=== PATIENT | male | born 1955 | race Caucasian/White ===

== ENCOUNTER 2020-10-31 13:44 | Emergency (ER) | payer SELFPAY ==
[~2020-10-31] VITALS: Ht 193 cm; Wt 122.7 kg
[2020-10-31 13:57] VITALS: Ht 193 cm; Wt 122.7 kg
[2020-10-31] MEDS ORDERED: GLUCOPHAGE1000 MG PO (14:01)
[2020-10-31] MEDS ORDERED: FISH OIL 1,0001 CA1 PO (14:01)
[2020-10-31] MEDS ORDERED: LIPITOR40 MG PO (14:01)
[2020-10-31] MEDS ORDERED: MULTI-DAY VITAM1 TAB PO (14:02)
[2020-10-31] MEDS ORDERED: FLOMAX0.4 MG PO (14:02)
[2020-10-31] MEDS ORDERED: BAYER CHEWABLE81 MG PO (14:02)
[2020-10-31] MEDS ORDERED: VITAMIN D325 MC1 PO (14:02)
[2020-10-31 15:20] LABS: BASOPHILS 0.1 % (0-2); EOSINOPHILS 2.3 % (0-7); HEMATOCRIT 44.5 % (42.0-54.0); IMMATURE GRANULOCYTES 0.3 % (0-5); LYMPHOCYTE ABS# 1.57 10x3/uL (1.32-3.57); LYMPHOCYTES 19.9 % (15-50); MCH 30.2 pg (26.0-34.0); MCHC 33.7 g/dL (31.0-37.0); MCV 89.7 fL (80.0-100.0); MEAN PLATELET VOLUME 10.3 fL (7.4-10.4); MONOCYTES 5.3 % (2-11); NEUTROPHILS 72.1 % (40-80); PLATELET COUNT 217 10x3/uL (130-400); RBC 4.96 10x6/uL (4.20-6.10); RDW 13.1 % (11.5-14.5); WBC 7.9 10x3/uL (4.8-10.8)
[2020-10-31 15:31] LABS: APTT 26.9 SECONDS (22.8-39.4); INR 1.12 (0.85-1.17); PROTIME 13.3 SECONDS (11.6-15.0)
[2020-10-31 15:38] LABS: CALC OSMOLALITY 280 mosm/kg (275-300); CALCIUM 9.3 mg/dL (8.5-10.1); CARBON DIOXIDE 28.4 mmol/L (21.0-32.0); CHLORIDE - SERUM 103 mmol/L (98-107); CREATININE - SERUM 1.2 mg/dL (0.6-1.3); GLUCOSE 124 mg/dL (74-106); POTASSIUM - SERUM 3.9 mmol/L (3.5-5.1); SODIUM 139 mmol/L (136-145); UREA NITROGEN 18 mg/dL (7-18); eGFR NON AFRICAN AMERICAN 64 mL/min (90-120)
[2020-10-31 15:55] LABS: ALKALINE PHOSPHATASE 82 U/L (30-120); ALT (SGPT) 42 U/L (10-68); BILIRUBIN - TOTAL 0.52 mg/dL (0.2-1.3); CKMB 2.6 U/L (0.0-3.6); CREATINE KINASE 104 UL (21-232); MAGNESIUM - SERUM 1.3 mg/dL (1.8-2.4); PROTEIN - SERUM 7.4 g/dL (6.4-8.2); THYROID STIMULATING HORMONE 2.01 uIU/mL (0.36-3.74); TROPONIN-I < 0.017 ng/mL (0.000-0.060)
== END 2020-10-31 17:00 | disposition home or self-care (01) ==
LOC: D.ER 13:44
PROVIDERS: Family Medicine
DX: R20.0 Anesthesia of skin (principal); R20.2 Paresthesia of skin; E11.9 Type 2 diabetes mellitus without complications; I10 Essential (primary) hypertension; Z79.84 Long term (current) use of oral hypoglycemic drugs